=== PATIENT | male | born 1995 | race Caucasian/White ===

== ENCOUNTER 2017-10-17 14:45 | Emergency (ER) | payer MEDICAID ==
[2017-10-17 15:42] VITALS: BP 109/67
--- NOTE | 2017-10-17 16:00 | EDPHY ---
General Time Seen by Provider: 10/17/17 15:44 Narrative: CHIEF COMPLAINT: Refill medication HISTORY OF PRESENT ILLNESS: Patient presents with complaints the refill for medication. He states history of depression, for which she has been taking sertraline 50 mg for several years. He recently moved here from [place], and he is trying to establish a primary care physician. He says that he took his last pill of sertraline this morning. He says that he is feeling well and has had no thoughts of self-harm, harm towards others or increasing depression. He denies any anxiety. His only request is for the sertraline as he does not have an appointment until at least next Friday. No other associated complaints or modifying factors. REVIEW OF SYSTEMS: 10 systems were reviewed and negative with the exception of the elements mentioned in the history of present illness. PCP: None currently. Appointment next Friday with new physician SPECIALISTS: Noncontributory PAST MEDICAL HISTORY: Depression, asthma PAST SURGICAL HISTORY: No surgical history SOCIAL HISTORY: Never smoker. Originally from [place]. [employer] student recently relocated here FAMILY HISTORY: Noncontributory EXAMINATION General Appearance: Alert, no distress Head: normocephalic, atraumatic Eyes: Pupils equal and round, no conjunctival pallor or injection Cardiovascular: Regular rate and rhythm Neurological: A&O, nonfocal, normal gait Skin: Warm and dry, no rash Extremities: Nontender, no pedal edema Psychiatric: Mood and affect normal DIFFERENTIAL DIAGNOSES: Including but not limited to chronic depression, major depressive disorder, suicidal ideation MDM: 4:00 p.m. Depression without any suicidal ideation or anxiety with request for refill of his sertraline. He is not requesting any controlled substances. He is well appearing, well groomed and denies any other associated complaints. He has made phone calls as an appointment next Friday with a new physician. He has strict ED precautions for any depression, anxiety, thoughts of self-harm or harm towards others. I do feel he is stable for discharge home and I will refill his medication for 30 days. SUPERVISION: This patient was independently evaluated without direct involvement of or examination by the attending physician. - History Smoking Status: Never smoked - Objective Vital Signs: Initial Vital Signs Temperature (C) 98.2 F 10/17/17 15:37 Heart Rate 73 10/17/17 15:37 Respiratory Rate 16 10/17/17 15:37 Blood Pressure 109/67 10/17/17 15:37 O2 Sat (%) 97 10/17/17 15:37 O2 Delivery Mode Room Air Allergies/Adverse Reactions: No Known Allergies Allergy (Unverified 10/17/17 16:01) Home Medications: Medication Instructions Recorded Sertraline HCl 50 mg PO DAILY #30 tablet 10/17/17 Departure - Departure Disposition: Home, Routine, Self-Care Clinical Impression: Encounter for medication refill Depression Qualifiers: Depression Type: major depressive disorder Major depression recurrence: single episode Active/Remission status: remission status unspecified Qualified Code(s) : F32.9 - Major depressive disorder, single episode, unspecified Condition: Good Instructions: Depression (ED) Additional Instructions: 1. Continue your previous prescription for sertraline 2. Contact 911 or return here for any thoughts of self-harm or harm towards others, anxiety or inability to see a physician in the next 30 days Referrals: Sarah Lux MD [[facility] [place] Primary Care Provider] - As per Instructions Prescriptions: Sertraline HCl 50 mg PO DAILY #30 tablet
== END 2017-10-17 16:06 | disposition home or self-care (01) ==
DX: Z76.0 Encounter for issue of repeat prescription (principal)

== ENCOUNTER 2017-10-25 15:31 | Emergency (ER) | payer MEDICAID ==
[2017-10-25 15:55] VITALS: BP 106/59
--- NOTE | 2017-10-25 16:27 | EDPHY ---
General Time Seen by Provider: 10/25/17 16:19 Narrative: CHIEF COMPLAINT: Sore throat HISTORY OF PRESENT ILLNESS: Patient presents with complaints of sore throat. Sore throat of proximal one- week duration. No cough. No headache. Some subjective fever at time. No difficulty breathing or swelling. He is not tolerating solids and minimally tolerating liquids he states. He was seen at outside facility was reportedly diagnosed with a positive rapid strep test. He was prescribed amoxicillin with no improvement over the past 72 hr. He has no worsening but no improvement. No abdominal pain. No rash. No other associated complaints or modifying factors. REVIEW OF SYSTEMS: 10 systems were reviewed and negative with the exception of the elements mentioned in the history of present illness. PCP: Waiting to establish SPECIALISTS: None PAST MEDICAL HISTORY: Anxiety and depression PAST SURGICAL HISTORY: No recent surgical history SOCIAL HISTORY: Nonsmoker. Recently relocated to [place] as a [employer] student. Pending primary care establishment FAMILY HISTORY: Noncontributory EXAMINATION: General Appearance: Alert, no distress. Speaking in full sentences without any hoarseness of the voice Head: normocephalic, atraumatic Eyes: Pupils equal and round, no conjunctival pallor or injection ENT, Mouth: Mucous membranes moist. Airway widely patent. No trismus. The uvula is midline. There is symmetric enlargement of the tonsils with exudate. No airway edema. Neck: Normal inspection, supple, non-tender. Anterior cervical lymphadenopathy. Respiratory: Lungs are clear to auscultation Cardiovascular: Regular rate and rhythm Gastrointestinal: Abdomen is soft and nontender Back: non-tender, no bony abnormalities Neurological: A&O, nonfocal, normal gait Skin: Warm and dry, no rash Extremities: Nontender, no pedal edema Psychiatric: Mood and affect normal DIFFERENTIAL DIAGNOSES: Including but not limited to strep pharyngitis, viral pharyngitis, mononucleosis , lives angina, peritonsillar abscess MDM: 4:25 p.m. Acute pharyngitis with no evidence of peritonsillar abscess or abnormality of the floor of the mouth. I do not feel that Wilfredo's is likely. He does have symmetric tonsillar enlargement with exudate. He has a widely patent airway without trismus or abnormality of his voice. We discuss changing medication with additional steroid, pain medication, salt water rinses and topical lidocaine. We discussed ED precautions. He is comfortable this plan. Vital signs are within normal limits. Discharged home stable condition. SUPERVISION: This patient was independently evaluated without direct involvement of or examination by the attending physician. CONSULTATION: None - History Smoking Status: Never smoked - Objective Vital Signs: Initial Vital Signs Temperature (C) 99.7 F 10/25/17 15:50 Heart Rate 83 10/25/17 15:50 Respiratory Rate 16 10/25/17 15:50 Blood Pressure 106/59 L 10/25/17 15:50 O2 Sat (%) 98 10/25/17 15:50 O2 Delivery Mode Room Air Allergies/Adverse Reactions: sulfamethoxazole [From Bactrim] Allergy (Verified 10/25/17 15:52) trimethoprim [From Bactrim] Allergy (Verified 10/25/17 15:52) Home Medications: Medication Instructions Recorded Sertraline HCl 50 mg PO DAILY #30 tablet 10/17/17 Azithromycin [Zithromax] 250 mg PO DAILY #6 tab 10/25/17 Dexamethasone [Decadron 4 MG (*)] 8 mg PO DAILY #4 tab 10/25/17 Lidocaine 2% Viscous 10 ml MM QID #100 ml 10/25/17 oxyCODONE HCL/ACETAMINOPHEN 1 each PO Q4-6PRN PRN #7 tablet 10/25/17 [Percocet 5-325 mg Tablet] Departure - Departure Disposition: Home, Routine, Self-Care Clinical Impression: Acute streptococcal pharyngitis Condition: Good Instructions: Strep Throat (ED) Additional Instructions: 1. Salt water rinses 4 times daily as needed 2. Discontinue use of amoxicillin 3. Zithromax as prescribed to completion for 5 days 4. Decadron, 8 mg today and repeat tomorrow morning 5. Discussed lacking as prescribed as needed 6. Pain medication as prescribed as needed 7. Increase fluid intake 8. ED precautions as discussed Referrals: Mehdi Fletcher MD [Medical Doctor] - As per Instructions Physician,Emergency DeptMD [Medical Doctor] - As per Instructions Prescriptions: Azithromycin [Zithromax] 250 mg PO DAILY #6 tab Dexamethasone [Decadron 4 MG (*)] 8 mg PO DAILY #4 tab Lidocaine 2% Viscous 10 ml MM QID #100 ml oxyCODONE HCL/ACETAMINOPHEN [Percocet 5-325 mg Tablet] 1 each PO Q4-6PRN PRN #7 tablet PRN Reason: Pain, Breakthrough
== END 2017-10-25 16:30 | disposition home or self-care (01) ==
DX: J02.0 Streptococcal pharyngitis (principal)

== ENCOUNTER 2018-06-16 12:32 | Emergency (ER) | payer MEDICAID ==
[2018-06-16 12:39] VITALS: BP 109/80
[2018-06-16] MEDS ORDERED: RALTEGRAVIR 400 MG TAB PO ONE (13:31)
[2018-06-16] MEDS ORDERED: EMTRICITABINE/TENOFOVIR 200MG/300MG TAB PO ONE (13:31)
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
[2018-06-16 14:53] LABS: HIV TYPE 1 AND 2 NEGATIVE (NEGATIVE)
== END 2018-06-16 14:01 | disposition home or self-care (01) ==
DX: Z20.6 Contact with and (suspected) exposure to human immunodeficiency virus [HIV] (principal)